=== PATIENT | male | born 1975 | race Caucasian/White ===

== ENCOUNTER 2017-04-19 19:50 | Emergency (ER) | payer MEDICAID ==
--- NOTE | 2017-04-19 19:50 | EDPHY ---
H & P Time Seen by Provider: 04/19/17 19:50 Constitutional: Initial Vital Signs Temperature (C) 36.8 C 04/19/17 19:57 Heart Rate 106 H 04/19/17 19:57 Respiratory Rate 16 04/19/17 19:57 Blood Pressure 128/76 H 04/19/17 19:57 O2 Sat (%) 93 04/19/17 19:57 O2 Delivery Mode Nasal Cannula O2 (L/minute) 3 Allergies/Adverse Reactions: Unable to Assess Allergy (Unverified 04/19/17 20:00) Home Medications: Medication Instructions Recorded Unobtainable 04/19/17 Medical Decision Making ED Course/Re-evaluation: CHIEF COMPLAINT: Alcohol intoxication. HISTORY OF PRESENT ILLNESS: This is a 41 y/o male with a history of alcoholism who arrives via EMS disoriented and intoxicated. He endorses drinking alcohol heavily today. Patient was found by a information [facility] in the [facility]. Staff contacted EMS when they were unable to get the patient to stand up and walk out of the building. Patient denies any injuries denies loss of consciousness denies any recent trauma. Patient denies co-ingestion. Patient denies suicidal or homicidal behavior. A&Ox2 for EMS. REVIEW OF SYSTEMS: A 10 point review of systems was performed and is negative with the exception of the elements mentioned in the history of present illness. PHYSICAL EXAM: General Appearance: Alert, disoriented, intoxicated, smells of alcohol, drooling, emesis bag draped across chest. Head: Atraumatic without scalp tenderness or obvious injury Eyes: Pupils equal, round, reactive to light and accommodation, EOMI, no trauma , no injection. Nose: Atraumatic, no rhinorrhea, clear. Throat: mucus membranes moist. Neck: Supple, nontender. Respiratory: No retractions, no distress, no wheezes, and no accessory muscle use. Lungs are clear to auscultation bilaterally. Cardiovascular: Regular rate and rhythm, no murmurs, rubs, or gallops. Good capillary refill all extremities. Gastrointestinal: Abdomen is soft, nontender, non-distended, no masses, no rebound, no guarding, no peritoneal signs. Musculoskeletal: Normal active ROM of all extremities, atraumatic. Neurological: Alert, oriented x2, minimally interactive. Nonfocal neuro exam. Skin: No rashes, good turgor, no nodules on palpation. PAST MEDICAL HISTORY: Alcoholism PAST SURGICAL HISTORY: unknown SOCIAL HISTORY: Unknown DIFFERENTIAL DIAGNOSIS: The differential diagnosis for the patient's altered mental status included but was not limited to hypoglycemia, infectious process, electrolyte abnormality, head injury, neurologic process, anemia, cardiac process, and intoxicants. MEDICAL DECISION MAKING: IV established by EMS. Basic labs and EtOH serum drawn. No trauma on exam. Presentation consistent with alcohol intoxication. LALI 506. I serially examined this patient since the patient's arrival here in the emergency department. The patient continues to become more and more sober with each examination. 2300: Patient care signed out to Dr. Garrett at shift change pending medical clearance for the [facility]. - Data Points Laboratory Results: 04/19/17 20:00 Ethyl Alcohol 506 mg/dL H* mg/dL (0-10) Medications Given: Discontinued Medications Sodium Chloride (Ns) 1,000 mls @ 0 mls/hr IV ONCE ONE PRN Reason: Wide Open Stop: 04/19/17 20:31 Last Admin: 04/19/17 20:30 Dose: 1,000 mls Departure - Departure Disposition: Home, Routine, Self-Care Clinical Impression: Alcoholic intoxication Qualifiers: Complication of substance-induced condition: uncomplicated Qualified Code(s): F10.120 - Alcohol abuse with intoxication, uncomplicated Condition: Good Instructions: Alcohol Intoxication (ED) Additional Instructions: Medically clear for detox. Referrals: [facility] 24 Hours [Outside] - As per Instructions Report Scribed for: Robert Rodriguez Report Scribed by: Romy Awan Date of Report: 04/19/17 Time of Report: 20:04
[2017-04-19 20:00] VITALS: TEMP 98.2
[2017-04-19] MEDS ORDERED: NS 1,000 ML IV ONE (20:30)
[2017-04-19 20:34] LABS: ETHANOL SERUM 506 mg/dL (0-10)
[2017-04-20] MEDS ORDERED: CHLORDIAZEPOXIDE 25MG PREPK#6 BTL TAKEHOME ONE (03:07)
[2017-04-20 03:24] VITALS: BP 105/59; PULSE 75; RESP 18; O2SAT 94
== END 2017-04-20 03:26 | disposition home or self-care (01) ==
DX: F10.120 Alcohol abuse with intoxication, uncomplicated (principal)
CPT/HCPCS: G0480